=== PATIENT | male | born 1985 | race Asian ===

== ENCOUNTER 2018-03-07 03:43 | Emergency (ER) | payer SELFPAY ==
[~2018-03-07] VITALS: Ht 170.2 cm; Wt 74.8 kg
[2018-03-07 03:45] VITALS: BP 139/90
[2018-03-07] MEDS ORDERED: ADDERAL20 MG ORAL (03:47)
--- NOTE | 2018-03-07 05:08 | Emergency Room Report ---
History of Present Illness General Chief Complaint: Alcohol Intoxication Source: EMS Present Illness HPI Is a 32-year-old male brought in by EMS for alcohol intoxication. He was at a bar his been drinking. He was vomiting on the stairway next to the bar. Bystander called 911. History is limited this patient because of his intoxication. There was no trauma. No longer vomiting. Patient History Past Medical History: see triage record, old chart reviewed Past Surgical History: unable to obtain Pertinent Family History: unable to obtain Social History: Reports: alcohol use Immunizations: other Reviewed Nursing Documentation: PMH: Agreed; PSxH: Agreed Nursing Documentation-PMH Past Medical History: No Stated History Review of Systems All Other Systems: limited - Secondary to intoxication Physical Exam Vital Signs Date Time Temp Pulse Resp B/P (MAP) Pulse Ox O2 Delivery O2 Flow Rate FiO2 03/07/18 03:44 98.4 86 18 132/80 99 Room Air vital signs normal Sp02 EP Interpretation: reviewed, normal General Appearance: well appearing, no apparent distress, other - Intoxicated Head: normocephalic, atraumatic Eyes: bilateral eye PERRL, bilateral eye EOMI ENT: hearing grossly normal, normal pharynx Neck: full range of motion, supple, no meningismus Respiratory: chest non-tender, lungs clear, normal breath sounds Cardiovascular #1: regular rate, rhythm, no murmur Gastrointestinal: normal bowel sounds, non tender, no mass, no organomegaly, no bruit, non-distended Musculoskeletal: back normal, normal range of motion Psychiatric: mood/affect normal Skin: warm/dry Medical Decision Making Diagnostic Impression: Primary Impression: Acute alcoholic intoxication Qualified Codes: F10.929 - Alcohol use, unspecified with intoxication, unspecified ER Course Patient presents with alcohol intoxication. No trauma to warrant CT scan or x- rays. We'll discharge home once clinically sober. Last Vital Signs Date Time Temp Pulse Resp B/P (MAP) Pulse Ox O2 Delivery O2 Flow Rate FiO2 03/07/18 03:45 98.6 88 18 139/90 99 Room Air Status: improved Disposition: HOME, SELF-CARE Condition: Stable Patient Instructions: Alcohol Intoxication, [id number] Additional Instructions: Follow-up with your doctor in 7 days. Abstain from drinking to excess. Return if worse. Porter Hsieh MD Mar 07, 2018 05:08
[2018-03-07 05:52] VITALS: BP 117/73
[2018-03-07 05:54] VITALS: BP 117/73
== END 2018-03-07 05:55 | disposition home or self-care (01) ==
LOC: EDBD 03:43 → EMR 03:58
DX: F10.929 Alcohol use, unspecified with intoxication, unspecified (principal)
CPT/HCPCS: 99282